=== PATIENT | male | born 1960 | race Caucasian/White ===

== ENCOUNTER 2016-09-03 12:26 | Emergency (ER) | payer OTHER ==
[2016-09-03] MEDS ORDERED: APAP/HYDROCODONE 325/5 TAB PO ONE (12:32)
[2016-09-03 12:35] VITALS: TEMP 97.8
[2016-09-03] MEDS ORDERED: APAP/HYDROCODONE 325/5 TAB ONE (12:35)
[2016-09-03] MEDS ORDERED: KETOROLAC TROMETHAMINE 30 MG/ML SOL IM ONE (12:38)
[2016-09-03] MEDS ORDERED: KETOROLAC TROMETHAMINE 30 MG/ML SOL ONE (12:39)
[2016-09-03 14:21] VITALS: BP 126/66; PULSE 64; RESP 18; O2SAT 100
== END 2016-09-03 14:15 | disposition home or self-care (01) | DRG 206 ==
LOC: ED 12:26
DX: S22.31XA Fracture of one rib, right side, initial encounter for closed fracture (principal); W00.0XXA Fall on same level due to ice and snow, initial encounter
CPT/HCPCS: 71101; 96372; 99283; J1885

== ENCOUNTER 2017-05-18 10:57 | Emergency (ER) | payer OTHER ==
[2017-05-18] MEDS ORDERED: LORAZEPAM 2 MG/ML SOL IV ONE ×2 (11:04→11:05)
[2017-05-18] MEDS ORDERED: LORAZEPAM 2 MG/ML SOL ONE (11:06)
[2017-05-18] MEDS ORDERED: SODIUM CHLORIDE 0.9% FLUSH 10 ML SOL IV PRN (11:06)
[2017-05-18] MEDS ORDERED: ASPIRIN 81 MG CHEWABLE CTB PO STA (11:06)
[2017-05-18] MEDS ORDERED: NITROGLYCERIN 0.4 MG TAB SL PRN (11:06)
[2017-05-18 11:08] VITALS: TEMP 98.4
[2017-05-18] MEDS ORDERED: ASPIRIN 81 MG CHEWABLE CTB ONE (11:15)
[2017-05-18 11:34] LABS: BASOPHILS % (AUTO) 1 % (0-3); EOSINOPHILS % (AUTO) 1 % (0-9); HEMATOCRIT 46 % (39-53); MEAN CORPUSCULAR HGB CONC 35.7 gm/dl (32.0-36.0); MEAN CORPUSCULAR VOLUME 94 fL (80-100); MONOCYTES % (AUTO) 8.5 % (0-12); NEUTROPHILS % (AUTO) 65.9 % (37-80)
[2017-05-18 11:45] LABS: CALCIUM 8.5 mg/dl (8.5-10.1); GLOM FILT RATE 86 mL/min (>60); POTASSIUM 4.2 mMol/L (3.5-5.1); SODIUM 141 mMol/L (136-145)
[2017-05-18] MEDS ORDERED: ALUMINUM/MAGNESIUM 30 ML SUS PO ONE (13:08)
[2017-05-18] MEDS ORDERED: LIDOCAINE HCL 2% (VISCOUS) 20 ML SOL MT ONE (13:08)
[2017-05-18] MEDS ORDERED: LIDOCAINE HCL 2% (VISCOUS) 20 ML SOL ONE (13:10)
[2017-05-18] MEDS ORDERED: ALUMINUM/MAGNESIUM 30 ML SUS ONE (13:10)
[2017-05-18 14:00] VITALS: BP 96/57; PULSE 66; RESP 18; O2SAT 97
== END 2017-05-18 15:25 | disposition home or self-care (01) | DRG 313 ==
LOC: ED 10:57
DX: R07.9 Chest pain, unspecified (principal); F41.0 Panic disorder [episodic paroxysmal anxiety]; Z59.0 Homelessness
CPT/HCPCS: 36415; 71010; 80048; 80307; 82550; 84484; 85025; 85610; 85730; 93005; 96374; 99284; J2060

== ENCOUNTER 2018-08-31 13:38 | Emergency (ER) | payer SELFPAY ==
[2018-08-31 14:04] VITALS: TEMP 98.2
[2018-08-31 14:27] LABS: BASOPHILS % (AUTO) 1 % (0-3); EOSINOPHILS % (AUTO) 5 % (0-9); HEMATOCRIT 47 % (39-53); HEMOGLOBIN 15.6 gm/dl (13.5-17.7); LYMPHOCYTES % (AUTO) 40.3 % (10-50); MEAN CORPUSCULAR HEMOGLOBIN 33.2 pg (27.0-32.0); MEAN CORPUSCULAR HGB CONC 33.2 gm/dl (32.0-36.0); MONOCYTES % (AUTO) 6.9 % (0-12); NEUTROPHILS % (AUTO) 46.7 % (37-80)
[2018-08-31 14:29] LABS: MEAN CORPUSCULAR VOLUME 100 fL (80-100)
[2018-08-31 14:37] LABS: ALBUMIN 3.8 gm/dl (3.4-5.0); CALCIUM 8.5 mg/dl (8.5-10.1); CARBON DIOXIDE 27.2 mEq/L (21-32); CREATININE 0.78 mg/dl (0.80-1.30); CRP INFLAMMATORY 0.05 mg/dl (0.00-0.33); POTASSIUM 4.4 mMol/L (3.5-5.1)
[2018-08-31 15:08] LABS: HEMOGLOBIN A1C 5.3 % (4.8-6.0)
[2018-08-31 18:40] VITALS: BP 112/66; PULSE 68; RESP 20; O2SAT 92
== END 2018-08-31 15:08 | disposition home or self-care (01) | DRG 607 ==
LOC: ED 13:38
DX: L84 Corns and callosities (principal); L97.519 Non-pressure chronic ulcer of other part of right foot with unspecified severity
CPT/HCPCS: 36415; 73630; 80048; 82040; 83036; 85025; 85651; 97597; 99284; A6232; A6402

== ENCOUNTER 2018-09-23 10:27 | Emergency (ER) | payer SELFPAY ==
[2018-09-23 10:42] VITALS: TEMP 96.8; O2SAT 99
[2018-09-23] MEDS ORDERED: LORAZEPAM 0.5 MG TAB PO ONE (11:17)
[2018-09-23] MEDS ORDERED: THIAMINE 100 MG TAB PO ONE (11:17)
[2018-09-23] MEDS ORDERED: LORAZEPAM 0.5 MG TAB ONE (11:28)
[2018-09-23] MEDS ORDERED: THIAMINE 100 MG TAB ONE (11:28)
[2018-09-23] MEDS ORDERED: SODIUM CHLORIDE 0.9% 1000ML 1,000 ML IV SCH (11:30)
[2018-09-23 11:32] LABS: BASOPHILS % (AUTO) 2 % (0-3); EOSINOPHILS % (AUTO) 1 % (0-9); HEMATOCRIT 49 % (39-53); HEMOGLOBIN 16.5 gm/dl (13.5-17.7); LYMPHOCYTES % (AUTO) 33.3 % (10-50); MEAN CORPUSCULAR HEMOGLOBIN 33.3 pg (27.0-32.0); MEAN CORPUSCULAR HGB CONC 33.8 gm/dl (32.0-36.0); MEAN CORPUSCULAR VOLUME 98 fL (80-100)
[2018-09-23 11:39] LABS: INR 1.06 (0.86-1.12)
[2018-09-23 11:51] LABS: ALBUMIN 3.9 gm/dl (3.4-5.0); ALKALINE PHOSPHATASE 63 IU/L (46-116); ALT 44 IU/L (14-63); AST 43 IU/L (15-37); BILIRUBIN,DIRECT 0.3 mg/dl (0.0-0.2); BILIRUBIN,TOTAL 1.1 mg/dl (0.2-1.0); BLOOD UREA NITROGEN 8 mg/dl (7-18); CALCIUM 9.4 mg/dl (8.5-10.1); CARBON DIOXIDE 23.5 mEq/L (21-32); CHLORIDE 101 mMol/L (98-107); CREATININE 0.84 mg/dl (0.80-1.30); GLUCOSE 112 mg/dl (74-106); MAGNESIUM 1.9 mg/dl (1.8-2.4); POTASSIUM 3.7 mMol/L (3.5-5.1); SODIUM 136 mMol/L (136-145); THYROID STIMULATING HORMONE 1.804 uIU/ml (0.358-3.740); TOTAL PROTEIN 7.2 gm/dl (6.4-8.2)
[2018-09-23 11:54] LABS: ALCOHOL < 0.003 gm/dl (0.000-0.08)
[2018-09-23 12:02] LABS: AMMONIA 18 umol/L (11-32)
[2018-09-23 12:52] LABS: APPEARANCE,URINE Clear; BILIRUBIN,URINE NEGATIVE (NEGATIVE); COLOR,URINE Yellow; GLUCOSE, URINE (UA) NEGATIVE (NEGATIVE); KETONES,URINE TRACE (NEGATIVE); LEUKOCYTE ESTERASE ,URINE NEGATIVE (NEGATIVE); NITRATE,URINE NEGATIVE (NEGATIVE); OCCULT BLOOD,URINE NEGATIVE (NEG-TRACE); UROBILINOGEN,URINE 0.2 (0.2-1.0 EU)
[2018-09-23 13:06] LABS: BACTERIA NEGATIVE (< 1+); BARBITUATES NEGATIVE (NEGATIVE); BENZODIAZEPINES NEGATIVE (NEGATIVE); CRYSTALS NEGATIVE (0-3 AVE/HPF); EPITHELIAL CELLS 0-1 (SQUAMOUS); METHADONE NEGATIVE (NEGATIVE); RBC,URINE NEG (0-3AV/HPF); TRICYCLIC ANTIDEPRESSANTS NEGATIVE (NEGATIVE); WBC,URINE NEG (0-5AV/HPF)
[2018-09-23 13:07] LABS: AMPHETAMINES NEGATIVE (NEGATIVE); CANNABINOL(THC) POSITIVE (NEGATIVE); COCAINE(COC) NEGATIVE (NEGATIVE); METHAMPHETAMINES NEGATIVE (NEGATIVE); OPIATES(OPI) NEGATIVE (NEGATIVE); OXYCODONE(OXY) NEGATIVE (NEGATIVE); PROPOXYPHENE(PPX) NEGATIVE (NEGATIVE)
[2018-09-23 14:47] VITALS: RESP 16
[2018-09-23 16:14] VITALS: BP 125/77; PULSE 80
== END 2018-09-23 16:44 | disposition other institution (70) | DRG 897 ==
LOC: ED 10:27
DX: F10.239 Alcohol dependence with withdrawal, unspecified (principal); F10.129 Alcohol abuse with intoxication, unspecified
CPT/HCPCS: 80048; 80076; 80305; 80307; 81001; 82140; 83735; 84443; 85025; 85610; 96365; 99282; 99283; A9270-GY